=== PATIENT | female | born 1985 | race Caucasian/White ===

== ENCOUNTER 2017-04-25 09:20 | Emergency (ER) | payer MEDICAID ==
[~2017-04-25] VITALS: Ht 157.5 cm; Wt 64.9 kg
[2017-04-25 10:53] LABS: BASOPHIL % 0.5 % (0-2); PLATELET COUNT 179 x10^3mcL (130-400); RED CELL DISTRIBUTION WIDTH 13.5 % (11.5-14.5)
[2017-04-25 11:01] LABS: CALCIUM 8.6 mg/dL (8.5-10.1); CHLORIDE SERUM 103 mmol/L (98-107); CREATININE SERUM 0.7 mg/dL (0.6-1.0); GFR1 > 60 mL/min; GLUCOSE SERUM 104 mg/dL (74-106); POTASSIUM SERUM 3.5 mmol/L (3.5-5.1); SODIUM SERUM 139 mmol/L (136-145)
[2017-04-25 11:06] LABS: ALBUMIN 3.7 g/dL (3.4-5.0); ALKALINE PHOSPHATASE 79 U/L (46-116); ALT/SGPT 19 U/L (14-59); AST/SGOT 16 U/L (15-37); BILIRUBIN TOTAL 0.2 mg/dL (0.20-1.00); TOTAL PROTEIN, SERUM 7.5 g/dL (6.4-8.2)
[2017-04-25 11:48] VITALS: BP 93/60
== END 2017-04-25 11:48 | disposition home or self-care (01) ==
LOC: ED 09:20
PROVIDERS: Emergency Medicine
DX: R07.89 Other chest pain (principal)
CPT/HCPCS: 36415; J1885; Q0092

== ENCOUNTER 2019-06-08 11:36 | Emergency (ER) | payer MEDICAID ==
[~2019-06-08] VITALS: Ht 157.5 cm; Wt 67.6 kg
[2019-06-08 11:43] VITALS: Ht 157.5 cm; Wt 67.6 kg
[2019-06-08 13:09] VITALS: BP 99/61
== END 2019-06-08 15:15 | disposition home or self-care (01) ==
LOC: ED 11:36
DX: S06.0X0A Concussion without loss of consciousness, initial encounter (principal); W22.8XXA Striking against or struck by other objects, initial encounter; Y93.89 Activity, other specified; Y92.89 Other specified places as the place of occurrence of the external cause; Y99.8 Other external cause status
CPT/HCPCS: J8597